=== PATIENT | male | born 1990 | race Caucasian/White ===

== ENCOUNTER 2022-10-24 05:54 | Emergency (ER) | payer OTHER ==
[~2022-10-24] VITALS: Ht 180.3 cm; Wt 92.0 kg
[2022-10-24 06:17] VITALS: BP 97/63
[2022-10-24] MEDS ORDERED: LIDOCAINE HCL/EPINEPHRINE 1%-EPI 1:100,000 20 ML VIAL INFIL ONE (07:00)
[2022-10-24] MEDS ORDERED: LIDOCAINE HCL/EPINEPHRINE 1%-EPI 1:100,000 10 ML VIAL INFIL SCH (07:15)
[2022-10-24] MEDS ORDERED: TOPUD PO (07:25)
== END 2022-10-24 09:33 | disposition home or self-care (01) ==
LOC: ER 05:54
DX: S81.812A Laceration without foreign body, left lower leg, initial encounter (principal); J45.909 Unspecified asthma, uncomplicated; Y08.89XA Assault by other specified means, initial encounter; Y93.9 Activity, unspecified; Y92.9 Unspecified place or not applicable
CPT/HCPCS: 12004; 73590; 99283; J3490